=== PATIENT | male | born 1995 | race Caucasian/White ===

== ENCOUNTER 2017-11-01 07:00 | Day surgery (SDC) | payer BC, OTHER ==
[~2017-11-01 07:00] MED LIST: Bupivacaine 0.5% 50 ML MDV ONE; Lidocaine 1% with EPINEPHrine 1:100,000 50 ML MDV ONE
[2017-11-01] MEDS ORDERED: Sodium Chloride 0.9% 1,000 ML IV SCH (07:30)
[2017-11-01] MEDS ORDERED: fentaNYL 250 MCG/5 ML SDV ONE ×2 (07:32→09:18)
[2017-11-01] MEDS ORDERED: Succinylcholine 200 MG/10 ML MDV ONE (07:32)
[2017-11-01] MEDS ORDERED: Glycopyrrolate 0.2 MG/ML 5 ML MDV ONE (07:32)
[2017-11-01] MEDS ORDERED: Propofol 200 MG/20 ML SDV ONE ×2 (07:32)
[2017-11-01] MEDS ORDERED: Dexamethasone 4 MG/ML SDV ONE (07:32)
[2017-11-01] MEDS ORDERED: Neostigmine Methylsulfate 1 MG/ML 5 ML Syringe ONE (07:32)
[2017-11-01] MEDS ORDERED: Ondansetron 4 MG/2 ML SDV ONE (07:32)
[2017-11-01] MEDS ORDERED: Rocuronium 50 MG/5 ML Vial ONE (07:32)
[2017-11-01] MEDS ORDERED: hydrOXYzine HCl 100 MG/2 ML SDV IM PRN (08:04)
[2017-11-01] MEDS ORDERED: Acetaminophen/oxyCODONE 325-10 MG Tab PO PRN (08:04)
[2017-11-01] MEDS ORDERED: Docusate Sodium 100 MG Cap PO PRN (08:04)
[2017-11-01] MEDS ORDERED: diphenhydrAMINE 50 MG/ML SDV IVPUSH PRN (08:04)
[2017-11-01] MEDS ORDERED: Acetaminophen 1,000 MG in Premix Bag 1 BAG IV PRN (08:04)
[2017-11-01] MEDS ORDERED: Zolpidem 5 MG Tab PO PRN (08:04)
[2017-11-01] MEDS ORDERED: Benzocaine/Cetylpyridinium/Menthol Lozenge MUCMEM PRN (08:04)
[2017-11-01] MEDS ORDERED: Bisacodyl 5 MG Tab PO PRN (08:04)
[2017-11-01] MEDS ORDERED: fentaNYL 100 MCG/2 ML SDV IVPUSH PRN (08:04)
[2017-11-01] MEDS ORDERED: metroNIDAZOLE/Normal Saline 500 MG in Premix Bag 1 BAG IV ONE (08:15)
[2017-11-01] MEDS ORDERED: ceFAZolin 2 GM in Premix Bag 1 BAG IV ONE (08:15)
--- NOTE | 2017-11-01 16:51 | OR ---
DATE OF PROCEDURE: 11/01/2017 PROCEDURE: Laparoscopic cholecystectomy. PREOPERATIVE DIAGNOSIS: Biliary dyskinesia. POSTOPERATIVE DIAGNOSIS: Biliary dyskinesia. RISKS: The risks, benefits, alternatives, limitations including, but were not limited to infection, bleeding, requirement of open surgery and possibility of common bile duct injury or cystic duct leak were explained to the patient including diagrams, and they understand these risks and wished to proceed. ANESTHESIA: General/local. PROCEDURE IN DETAIL: The patient was placed in the supine position after being prepped and draped. A supraumbilical curvilinear incision was made. A Veress needle was used to enter the abdomen without abnormality. A drop test was performed without abnormality. The abdomen was subsequently insufflated. An Optiview trocar was inserted. The additional 10 and two 5 mm ports will be entered under direct visualization. No evidence of enterotomy or injury was noted upon entry. The patient had a rather large floppy liver. The gallbladder contained adhesions and consistent with inflammatory process. These were bluntly dissected with very minimal bleeding. The gallbladder itself was rather sunken into the liver. Blunt dissection was commenced and eventually a single pulsatile structure entering the gallbladder and a single nonpulsatile structure was noted entering the gallbladder. This was a "clear view" of the gallbladder seen with dissection of the majority of the associated tissues prior to clipping. Once this was completed, the duct and artery were clipped x3 and subsequently transected. During the transection of the remainder of the gallbladder, there was a small piece of tissue that was unclear if this was a piece of stone or fat that was cauterized. This was less than 1 mm. There was no ductal structure with this. Laparoscopic evaluation for an accessory duct was then commenced and none was identified. The remaining gallbladder was removed off the gallbladder bed and the gallbladder was inspected on the back table for an accessory duct. None was noted. The gallbladder fossa was then thoroughly inspected again and no accessory or additional duct structures were noted. This was then thoroughly irrigated and 10 minutes was allowed to commence to see if there was any bile leakage, which none was noted. The pressure was then dropped and this process was repeated again to evaluate for accessory duct leaks or ductal complications. Therefore, none was noted. The air was removed. The abdomen was again thoroughly irrigated. The air was removed. The wounds were closed with 3-0 and 4-0 Vicryl in an interrupted running fashion. Dermabond was applied. Local anesthetic was applied. The patient tolerated the procedure well. Dennis Brothers MD /[id number]
[2017-11-08] MEDS ORDERED: hydrOXYzine HCl 100 MG/2 ML SDV IM ONE (07:43)
== END 2017-11-01 13:53 | disposition home or self-care (01) ==
LOC: JP.SDS 07:00 → JP.MS 08:04 → JP.SDS 13:53
PROVIDERS: ATTEND Surgery
DX: K81.1 Chronic cholecystitis (principal); K82.8 Other specified diseases of gallbladder; Z87.891 Personal history of nicotine dependence
CPT/HCPCS: 36415; 47562; 80053; 85027; A9270; J0330; J0690; J1100; J2405; J2704; J2710; J3010; J3410; J7040; 88304